=== PATIENT | male | born 1970 | race Caucasian/White ===

== ENCOUNTER 2019-07-06 08:22 | Emergency (ER) | payer SELFPAY ==
[~2019-07-06] VITALS: Ht 177.8 cm; Wt 149.7 kg
[2019-07-06] MEDS ORDERED: IPRATROPIUM BROMIDE 0.02% 2.5 ML NEB NEB STA (08:26)
[2019-07-06] MEDS ORDERED: ASPIRIN 81 MG CHEW TAB PO ONE (08:30)
--- NOTE | 2019-07-06 08:30 | NUR ---
blood drawn at triage
[2019-07-06 08:40] LABS: BASOPHILS % 0.5 % (0.0-1.0); EOSINOPHILS # (AUTO) 0.1 (0.0-0.4); HEMATOCRIT 44.1 % (38.2-49.6); HEMOGLOBIN 14.4 g/dL (14.0-18.0); LYMPHOCYTES # (AUTO) 1.1 (1.0-3.2); LYMPHOCYTES % 14.7 % (18.0-39.1); MEAN CORPUSCULAR HEMOGLOBIN 31.8 pg (28-32); MEAN CORPUSCULAR HGB CONC 32.7 g/dL (31-35); MEAN CORPUSCULAR VOLUME 97.4 fL (81-99); MONOCYTES # (AUTO) 0.6 (0.2-0.8); MONOCYTES % 7.2 % (4.4-11.3); NEUTROPHILS # (AUTO) 5.9 (2.1-6.9); NEUTROPHILS % 76.2 % (38.7-80.0); PLATELET COUNT 221 x10e3/uL (140-360); RED BLOOD COUNT 4.53 x10e6/uL (4.3-5.7); RED CELL DISTRIBUTION WIDTH 14.4 % (11.7-14.4)
[2019-07-06] MEDS ORDERED: CLONIDINE HCL0.1 MG (08:41)
[2019-07-06] MEDS ORDERED: AMLODIPINE BESY10 MG (08:41)
[2019-07-06] MEDS ORDERED: MELOXICAM15 MG (08:41)
[2019-07-06] MEDS ORDERED: PROAIR DIGIHAL90 MCG (08:41)
[2019-07-06] MEDS ORDERED: GLYBURIDE5 MG (08:41)
[2019-07-06] MEDS ORDERED: OLMESARTAN-HCT1 EAC2 (08:41)
[2019-07-06] MEDS ORDERED: METOPROLOL SUCC50 MG (08:41)
[2019-07-06] MEDS ORDERED: FARXIGA10 MG PO (08:43)
[2019-07-06] MEDS ORDERED: BYSTOLIC10 MG PO (08:43)
[2019-07-06 09:08] LABS: ALANINE AMINOTRANSFERASE 35 IU/L (0-55); ALBUMIN 3.8 g/dL (3.5-5.0); ALBUMIN/GLOBULIN RATIO 1.2 (0.8-2.0); ALKALINE PHOSPHATASE 90 IU/L (40-150); BLOOD UREA NITROGEN 16 mg/dL (7-26); BUN/CREATININE RATIO 16 (6-25); CALCIUM 9.5 mg/dL (8.4-10.2); CARBON DIOXIDE 27 mmol/L (22-29); CHLORIDE 101 mmol/L (98-107); CREATINE KINASE 88 IU/L (30-200); CREATININE, SERUM 0.97 mg/dL (0.72-1.25); EST GLOMERULAR FILTRATION RATE > 60 ML/MIN (60-); GLUCOSE 190 mg/dL (74-118); SODIUM 140 mmol/L (136-145)
--- NOTE | 2019-07-06 10:36 | Diagnostic Imaging Report ---
EXAM: CT Chest WITH contrast (PE Protocol) INDICATION: Shortness of breath COMPARISON: None TECHNIQUE: Chest was scanned utilizing a multidetector helical scanner from the lung apex through the level of the diaphragm after administration of IV contrast. Thin section reconstructions were obtained with special concentration on the pulmonary arteries. Coronal and sagittal reformations were obtained. Pulmonary embolism protocol was performed. IV CONTRAST: 100 mL of Omnipaque 350 COMPLICATIONS: None RADIATION DOSE: Total DLP: 674 mGy*cm Estimated effective dose: (DLP x 0.014 x size factor) mSv CTDIvol has been reviewed. It is below the limits set by the Radiation Protocol Committee (RPC). Dose modulation, iterative reconstruction, and/or weight based adjustment of the mA/kV was utilized to reduce the radiation dose to as low as reasonably achievable. FINDINGS: LINES/ TUBES: None. LUNGS AND AIRWAYS: Limited evaluation of the segmental and subsegmental pulmonary artery branches due to beam hardening artifact and respiratory motion. No filling defects are identified within the central and lobar pulmonary arteries. The lungs are clear. PLEURA: The pleural spaces are clear. HEART AND MEDIASTINUM: The heart is at the upper limit of normal in size. No pericardial effusion. No thoracic adenopathy. The main pulmonary artery is normal in caliber. Mild coronary artery calcification. UPPER ABDOMEN: Grossly unremarkable. BONES: The visualized bony thorax is within normal limits. SOFT TISSUES: Unremarkable. IMPRESSION: Limited study with suboptimal evaluation of the segmental and subsegmental pulmonary artery branches. No pulmonary embolus is identified within the main and lobar pulmonary arteries. The lungs are clear. Signed by: Ray Freed MD on 07/06/2019 10:33 AM
== END 2019-07-06 12:00 | disposition home or self-care (01) ==
LOC: ER 08:22
DX: R06.09 Other forms of dyspnea (principal); R60.9 Edema, unspecified
CPT/HCPCS: 36415; 71260; 80053; 82550; 82553; 83880; 84484; 85025; 93005; 94640; 99284

== ENCOUNTER 2019-07-13 06:22 | Emergency (ER) | payer SELFPAY ==
[~2019-07-13] VITALS: Ht 177.8 cm; Wt 149.7 kg
[~2019-07-13 06:22] MED LIST: AMLODIPINE BESY10 MG; BYSTOLIC10 MG PO; CLONIDINE HCL0.1 MG; FARXIGA10 MG PO; GLYBURIDE5 MG; MELOXICAM15 MG; METOPROLOL SUCC50 MG; OLMESARTAN-HCT1 EAC2; PROAIR DIGIHAL90 MCG
--- OUTSIDE RECORDS SUMMARY | 2019-07-13 06:25 | XMS REPORT ---
Author Author [facility] Address Unknown Phone Unavailable Care Team Providers Care [employer] Name Role Phone MK LUI Unavailable Unavailable Problems This patient has no known problems. Allergies, Adverse Reactions, Alerts This patient has no known allergies or adverse reactions. Medications This patient has no known medications. Results Test Description Test Time Test Comments Text Results Atomic Results Result Comments CT CHEST W 2019-07-06 10:28:00 [facility] [address] [place] [address] Patient Name: JESSICA ESCUDERO MR #: [id number] : 1970 Age/Sex: 49/M Req #: [id number] Adm Physician: Ordered by: MK LUI DO Report #: [id number] Location: ER Room/Bed: Procedure: [id number] CT/CT CHEST W Exam Date: 07/06/19 Exam Time: 919 REPORT STATUS: Signed EXAM: CT Chest WITH contrast (PE Protocol) INDICATION: Shortness of breath COMPARISON: None TECHNIQUE: Chest was scanned utilizing a multidetector helical scanner from the lung apex through the level of the diaphragm after administration of IV contrast. Thin section reconstructions were obtained with special concentration on the pulmonary arteries. Coronal and sagittal reformations were obtained. Pulmonary embolism protocol was performed. IV CONTRAST: 100 mL of Omnipaque 350 COMPLICATIONS: None RADIATION DOSE: Total DLP: 674 mGy*cm Estimated effective dose: (DLP x 0.014 x size factor) mSv CTDIvol has been reviewed. It is below the limits set by the Radiation Protocol Committee (RPC). Dose modulation, iterative reconstruction, and/or weight based adjustment of the mA/kV was utilized to reduce the radiation dose to as low as reasonably achievable. FINDINGS: LINES/ TUBES: None. LUNGS AND AIRWAYS: Limited evaluation of the segmental and subsegmental pulmonary artery branches due to beam hardening artifact and respiratory motion. No filling defects are identified within the central and lobar pulmonary arteries. The lungs are clear. PLEURA: The pleural spaces are clear. HEART AND MEDIASTINUM: The heart is at the upper limit of normal in size. No pericardial effusion. No thoracic adenopathy. The main pulmonary artery is normal in caliber. Mild veronique nary artery calcification. UPPER ABDOMEN: Grossly unremarkable. BONES: The visualized bony thorax is within normal limits. SOFT TISSUES: Unremarkable. IMPRESSION: Limited study with suboptimal evaluation of the segmental and subsegmental pulmonary artery branches. No pulmonary embolus is identified within the main and lobar pulmonary arteries. The lungs are clear. Signed by: Anette Arguello MD on 07/06/2019 10:33 AM Dictated By: ANETTE ARGUELLO MD [id number] Transcribed By: ARTHUR on 07/06/19 1033 COPY TO: MK LUI DO
[2019-07-13 06:55] LABS: BASOPHILS % 0.5 % (0.0-1.0); EOSINOPHILS # (AUTO) 0.1 (0.0-0.4); EOSINOPHILS % 1.7 % (0.0-6.0); HEMATOCRIT 49.5 % (38.2-49.6); LYMPHOCYTES # (AUTO) 1.3 (1.0-3.2); LYMPHOCYTES % 17.2 % (18.0-39.1); MEAN CORPUSCULAR HEMOGLOBIN 31.6 pg (28-32); MEAN CORPUSCULAR HGB CONC 32.3 g/dL (31-35); MEAN CORPUSCULAR VOLUME 97.8 fL (81-99); MONOCYTES # (AUTO) 0.7 (0.2-0.8); MONOCYTES % 9.3 % (4.4-11.3); NEUTROPHILS # (AUTO) 5.4 (2.1-6.9); NEUTROPHILS % 70.1 % (38.7-80.0); PLATELET COUNT 217 x10e3/uL (140-360); RED BLOOD COUNT 5.06 x10e6/uL (4.3-5.7); RED CELL DISTRIBUTION WIDTH 14.4 % (11.7-14.4)
--- NOTE | 2019-07-13 06:57 | NUR ---
Report to Fernando
--- NOTE | 2019-07-13 06:58 | NUR ---
received report from off going nurse. patient in room in bed, connected to bedside monitor, awake and alert. no s/s of acute distress. resp even and nonlabored. pending results for dispo. bed down call light in reach, will continue to monitor.
[2019-07-13 07:13] LABS: ALANINE AMINOTRANSFERASE 49 IU/L (0-55); ALBUMIN/GLOBULIN RATIO 1.2 (0.8-2.0); ALKALINE PHOSPHATASE 71 IU/L (40-150); BLOOD UREA NITROGEN 19 mg/dL (7-26); BUN/CREATININE RATIO 20 (6-25); CALCIUM 8.9 mg/dL (8.4-10.2); CARBON DIOXIDE 31 mmol/L (22-29); CHLORIDE 100 mmol/L (98-107); CREATININE, SERUM 0.94 mg/dL (0.72-1.25); EST GLOMERULAR FILTRATION RATE > 60 ML/MIN (60-); GLUCOSE 144 mg/dL (74-118); SODIUM 138 mmol/L (136-145)
--- NOTE | 2019-07-13 07:22 | Diagnostic Imaging Report ---
Examination: Single AP view of the chest. COMPARISON: CT chest PE protocol 07/06/2019 INDICATION: Syncope DISCUSSION: The lungs are well inflated. No focal consolidation, pleural effusion, or pneumothorax. Cardiomediastinal contour and pulmonary vasculature are within normal limits when accounting for AP technique. No acute osseous abnormalities. IMPRESSION: 1. No acute cardiopulmonary abnormalities. Signed by: Dr. Gunner King M.D. on 07/13/2019 7:20 AM
[2019-07-13 07:45] LABS: CLARITY,URINE SL CLOUDY (CLEAR); COLOR,URINE YELLOW (YELLOW)
[2019-07-13 07:46] LABS: AMPHETAMINES SCREEN,URINE NEGATIVE (NEGATIVE); BENZODIAZEPINES SCREEN,URINE NEGATIVE (NEGATIVE); KETONES,URINE NEGATIVE (NEGATIVE); LEUKOCYTE ESTERASE ,URINE NEGATIVE (NEGATIVE); NITRITE,URINE NEGATIVE (NEGATIVE); PHENCYCLIDINE SCREEN,URINE NEGATIVE (NEGATIVE); PROTEIN,URINE DIPSTICK NEGATIVE (NEGATIVE)
[2019-07-13 07:47] LABS: BACTERIA,URINE RARE /HPF; BILIRUBIN,URINE NEGATIVE (NEGATIVE); EPITHELIAL CELLS,URINE FEW /LPF; RBC,URINE 0-5 /HPF (0-5); URINE UROBILINOGEN 0.2 mg/dL (0.2 - 1); WBC,URINE (MAN) 0-5 /HPF (0-5)
--- NOTE | 2019-07-13 07:48 | Diagnostic Imaging Report ---
Examination: CT BRAIN WO CONTRAST History:Tingling in the fingers Comparison studies:None Technique: Axial images were obtained from the skull base to the vertex. Coronal and sagittal images reconstructed from the axial data. Dose modulation, iterative reconstruction, and/or weight based adjustment of the mA/kV was utilized to reduce the radiation dose to as low as reasonably achievable. Intravenous contrast: None Findings: Scalp: No abnormalities. Bones: No fractures, blastic or lytic lesions. Brain sulci: Appropriate for age. Ventricles: Normal in size and configuration. No hydrocephalus. Extra-axial space: No abnormalities. Parenchyma: A chronic infarct is identified in the anterior limb of the right internal capsule and right caudate head. There are patchy areas of hypoattenuation in the periventricular and subcortical white matter, nonspecific. No masses, hemorrhage, or acute or chronic cortical based vascular insults. Sellar/suprasellar region: No abnormalities. Craniocervical junction: Patent foramen magnum. No Chiari one malformation. Incidental findings: Opacified right middle ear cavity and mastoid air cells. Impression: No acute intracranial abnormalities. 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 Findings as described could be related to microvascular ischemic change or demyelinating disease. Signed by: Dr. Ramila Garcia M.D. on 07/13/2019 7:45 AM
[2019-07-13 08:58] LABS: ABG HCO3 30 mmol/L (23-28); ABG PCO2 42 mmHg (41-51); ABG PH 7.44 (7.31-7.41); ABG PO2 108 mmHg (80-105)
[2019-07-13 09:04] LABS: MAGNESIUM 2.2 MG/DL (1.3-2.1); PHOSPHORUS 4.2 MG/DL (2.3-4.7)
== END 2019-07-13 12:01 | disposition home or self-care (01) ==
LOC: ER 06:22
DX: R55 Syncope and collapse (principal); R20.2 Paresthesia of skin; I10 Essential (primary) hypertension; E11.9 Type 2 diabetes mellitus without complications; J44.9 Chronic obstructive pulmonary disease, unspecified; J45.909 Unspecified asthma, uncomplicated; E66.9 Obesity, unspecified; Z89.511 Acquired absence of right leg below knee
CPT/HCPCS: 36415; 36600; 70450; 71045; 80053; 80307; 81001; 82805; 83735; 84100; 85025; 85379; 93005; 99284

== ENCOUNTER 2020-12-25 06:42 | Emergency (ER) | payer BC ==
[~2020-12-25] VITALS: Ht 177.8 cm; Wt 149.7 kg
[2020-12-25 07:09] LABS: BASOPHILS # (AUTO) 0.1 (0.0-0.1); BASOPHILS % 0.7 % (0.0-1.0); EOSINOPHILS # (AUTO) 0.1 (0.0-0.4); EOSINOPHILS % 1.6 % (0.0-6.0); HEMATOCRIT 42.6 % (38.2-49.6); HEMOGLOBIN 13.6 g/dL (14.0-18.0); LYMPHOCYTES % 13.3 % (18.0-39.1); MEAN CORPUSCULAR HEMOGLOBIN 29.7 pg (28-32); MEAN CORPUSCULAR HGB CONC 31.9 g/dL (31-35); MONOCYTES # (AUTO) 0.6 (0.2-0.8); MONOCYTES % 7.5 % (4.4-11.3); NEUTROPHILS # (AUTO) 5.7 (2.1-6.9); NEUTROPHILS % 76.6 % (38.7-80.0); PLATELET COUNT 223 x10e3/uL (140-360); RED BLOOD COUNT 4.58 x10e6/uL (4.3-5.7); RED CELL DISTRIBUTION WIDTH 13.8 % (11.7-14.4)
[2020-12-25 07:42] LABS: ALBUMIN 3.5 g/dL (3.5-5.0); ANION GAP 14.7 mmol/L (8-16); CALCIUM 8.9 mg/dL (8.4-10.2); CREATININE, SERUM 0.91 mg/dL (0.72-1.25); POTASSIUM 3.7 mmol/L (3.5-5.1)
[2020-12-25 07:49] LABS: CREATINE KINASE MB 1.2 ng/mL (0-5.0)
[2020-12-25 11:01] LABS: CREATINE KINASE 49 IU/L (30-200)
== END 2020-12-25 11:57 | disposition home or self-care (01) ==
LOC: ER 07:33
DX: R07.89 Other chest pain (principal); I10 Essential (primary) hypertension; J44.9 Chronic obstructive pulmonary disease, unspecified; Z87.891 Personal history of nicotine dependence; E11.9 Type 2 diabetes mellitus without complications; Z79.84 Long term (current) use of oral hypoglycemic drugs; Z79.899 Other long term (current) drug therapy
CPT/HCPCS: 36415; 71045; 80053; 82550; 82553; 83690; 83880; 84484; 85025; 93005; 99284

== ENCOUNTER 2021-01-08 10:10 | Inpatient (IN) | payer BC ==
[~2021-01-08] VITALS: Ht 170.2 cm; Wt 133.0 kg
[2021-01-08] MEDS ORDERED: DEXAMETHASONE SOD PHOS 10 MG/1 ML VIAL IV ONE (10:30)
[2021-01-08 10:36] LABS: BASOPHILS % 0.2 % (0.0-1.0); HEMATOCRIT 36.5 % (38.2-49.6); HEMOGLOBIN 11.7 g/dL (14.0-18.0); LYMPHOCYTES # (AUTO) 0.4 (1.0-3.2); LYMPHOCYTES % 7.5 % (18.0-39.1); MEAN CORPUSCULAR HEMOGLOBIN 29.5 pg (28-32); MEAN CORPUSCULAR HGB CONC 32.1 g/dL (31-35); MEAN CORPUSCULAR VOLUME 92.2 fL (81-99); MONOCYTES # (AUTO) 0.3 (0.2-0.8); MONOCYTES % 5.4 % (4.4-11.3); NEUTROPHILS # (AUTO) 5.1 (2.1-6.9); NEUTROPHILS % 86.4 % (38.7-80.0); PLATELET COUNT 186 x10e3/uL (140-360); RED BLOOD COUNT 3.96 x10e6/uL (4.3-5.7); RED CELL DISTRIBUTION WIDTH 14.5 % (11.7-14.4)
[2021-01-08 11:13] LABS: ALBUMIN 2.8 g/dL (3.5-5.0); ALBUMIN/GLOBULIN RATIO 0.6 (0.8-2.0); ANION GAP 19.1 mmol/L (8-16); CALCIUM 8.4 mg/dL (8.4-10.2); CREATININE, SERUM 1.15 mg/dL (0.72-1.25); POTASSIUM 4.1 mmol/L (3.5-5.1)
[2021-01-08] MEDS ORDERED: SODIUM CHLORIDE 0.9% 1000ML 1,000 ML IV ONE (15:00)
[2021-01-08] MEDS ORDERED: GUAIFENESIN/CODEINE 10 ML CUP PO PRN (15:00)
[2021-01-08] MEDS ORDERED: DEXTROSE 50% SYRINGE 50 ML IV PRN ×2 (15:00→17:15)
[2021-01-08] MEDS ORDERED: REMDESIVIR 200MG 200 MG in SODIUM CHLORIDE 0.9% 100 ML 100 ML IV ONE (15:30)
[2021-01-08] MEDS: CEFTRIAXONE 2 GM in SODIUM CHLORIDE 0.9% 100 ML IV SCH (15:47)
[2021-01-08] MEDS ORDERED: INSULIN REGULAR, HUMAN 100 UNIT/1 ML SQ SCH (16:30)
[2021-01-08] MEDS ORDERED: ENOXAPARIN SOD INJ 40 MG/0.4 ML SYR SC SCH (17:00)
[2021-01-08] MEDS: ASCORBIC ACID 500 MG TAB PO SCH (17:00)
[2021-01-08] MEDS: GLYBURIDE 5 MG TAB PO SCH (17:30)
[2021-01-08] MEDS ORDERED: ZOLPIDEM TARTRATE 5 MG TAB PO PRN (21:00)
[2021-01-08] MEDS: INSULIN GLARGINE 100 UNITS/ML VIAL SQ SCH (21:00)
[2021-01-08] MEDS: CLONIDINE HCL 0.1 MG TAB PO SCH (21:00)
[2021-01-08] MEDS: INSULIN REGULAR, HUMAN 100 UNIT/1 ML SQ SCH (22:19)
[2021-01-09] VITALS (13 sets, daily range): BP systolic 88–124; BP diastolic 38–95
[2021-01-09] MEDS ORDERED: DEXMEDETOMIDINE 200MCG/NS 50ML 50 ML IV PRN
[2021-01-09] MEDS ORDERED: DEXMEDETOMIDINE 200MCG/NS 50ML 100 ML IV ONE (00:04)
[2021-01-09] MEDS ORDERED: ENOXAPARIN INJ 80 MG/0.8 ML SYR SC SCH (05:00)
[2021-01-09] MEDS: INSULIN REGULAR, HUMAN 100 UNIT/1 ML SQ SCH ×4 (07:30→21:00)
[2021-01-09 08:07] LABS: BASOPHILS % 0.1 % (0.0-1.0); HEMATOCRIT 41.8 % (38.2-49.6); HEMOGLOBIN 13.3 g/dL (14.0-18.0); LYMPHOCYTES # (AUTO) 0.4 (1.0-3.2); LYMPHOCYTES % 6.1 % (18.0-39.1); MEAN CORPUSCULAR HEMOGLOBIN 28.9 pg (28-32); MEAN CORPUSCULAR HGB CONC 31.8 g/dL (31-35); MEAN CORPUSCULAR VOLUME 90.9 fL (81-99); MONOCYTES # (AUTO) 0.4 (0.2-0.8); MONOCYTES % 5.1 % (4.4-11.3); NEUTROPHILS # (AUTO) 6.1 (2.1-6.9); NEUTROPHILS % 88.3 % (38.7-80.0); PLATELET COUNT 264 x10e3/uL (140-360); RED CELL DISTRIBUTION WIDTH 14.5 % (11.7-14.4)
[2021-01-09 08:41] LABS: ALBUMIN 3.3 g/dL (3.5-5.0); ALBUMIN/GLOBULIN RATIO 0.9 (0.8-2.0); ANION GAP 17.4 mmol/L (8-16); CALCIUM 8.7 mg/dL (8.4-10.2); CREATININE, SERUM 0.88 mg/dL (0.72-1.25); POTASSIUM 4.4 mmol/L (3.5-5.1)
[2021-01-09] MEDS: GLYBURIDE 5 MG TAB PO SCH ×3 (08:52→17:35)
[2021-01-09] MEDS: CLONIDINE HCL 0.1 MG TAB PO SCH ×2 (08:52→21:16)
[2021-01-09] MEDS: CEFTRIAXONE 2 GM in SODIUM CHLORIDE 0.9% 100 ML IV SCH (08:52)
[2021-01-09] MEDS: AMLODIPINE BESYLATE 5 MG TAB PO SCH (08:54)
[2021-01-09] MEDS: ASCORBIC ACID 500 MG TAB PO SCH ×2 (08:54→16:31)
[2021-01-09] MEDS: (Dapagliflozin Propanediol (Farxiga) 10 MG) PO SCH (08:54)
[2021-01-09] MEDS ORDERED: NEBIVOLOL 10 MG TAB PO SCH (09:00)
[2021-01-09] MEDS: METOPROLOL SUCCINATE 50 MG TAB XL PO SCH (09:00)
[2021-01-09] MEDS: ZINC SULFATE 220 MG CAP PO SCH (09:10)
[2021-01-09] MEDS: DEXAMETHASONE SOD PHOS 10 MG/1 ML VIAL IV SCH (12:20)
[2021-01-09] MEDS: REMDESIVIR 100MG 100 MG in SODIUM CHLORIDE 0.9% 100 ML 100 ML IV SCH (14:35)
[2021-01-09] MEDS: ENOXAPARIN SOD INJ 40 MG/0.4 ML SYR SC SCH (17:00)
[2021-01-09] MEDS ORDERED: GUAIFENESIN/CODEINE 5 ML LIQD PO PRN (20:00)
[2021-01-09] MEDS: INSULIN GLARGINE 100 UNITS/ML VIAL SQ SCH (21:18)
[2021-01-10] VITALS (23 sets, daily range): BP systolic 106–138; BP diastolic 47–101
[2021-01-10] MEDS: ENOXAPARIN SOD INJ 40 MG/0.4 ML SYR SC SCH ×2 (05:00→16:30)
[2021-01-10 05:08] LABS: BASOPHILS % 0.1 % (0.0-1.0); HEMATOCRIT 39.7 % (38.2-49.6); HEMOGLOBIN 12.7 g/dL (14.0-18.0); LYMPHOCYTES # (AUTO) 0.4 (1.0-3.2); LYMPHOCYTES % 4.7 % (18.0-39.1); MEAN CORPUSCULAR VOLUME 90.6 fL (81-99); MONOCYTES # (AUTO) 0.3 (0.2-0.8); MONOCYTES % 4.1 % (4.4-11.3); NEUTROPHILS # (AUTO) 6.8 (2.1-6.9); NEUTROPHILS % 90.3 % (38.7-80.0); PLATELET COUNT 294 x10e3/uL (140-360); RED BLOOD COUNT 4.38 x10e6/uL (4.3-5.7); RED CELL DISTRIBUTION WIDTH 14.7 % (11.7-14.4)
[2021-01-10 05:37] LABS: ALBUMIN/GLOBULIN RATIO 0.9 (0.8-2.0); ANION GAP 14.9 mmol/L (8-16); CALCIUM 8.6 mg/dL (8.4-10.2); CREATININE, SERUM 0.86 mg/dL (0.72-1.25); POTASSIUM 3.9 mmol/L (3.5-5.1)
[2021-01-10] MEDS ORDERED: SODIUM CHLORIDE 0.9% 200 ML ONE (08:54)
[2021-01-10] MEDS ORDERED: SODIUM CHLORIDE 0.9% 100 ML ONE (08:56)
[2021-01-10] MEDS: (Dapagliflozin Propanediol (Farxiga) 10 MG) PO SCH (09:00)
[2021-01-10] MEDS: DEXAMETHASONE SOD PHOS 10 MG/1 ML VIAL IV SCH (09:09)
[2021-01-10] MEDS: GLYBURIDE 5 MG TAB PO SCH ×2 (09:09→17:00)
[2021-01-10] MEDS: ASCORBIC ACID 500 MG TAB PO SCH ×2 (09:10→16:30)
[2021-01-10] MEDS: METOPROLOL SUCCINATE 50 MG TAB XL PO SCH (09:10)
[2021-01-10] MEDS: ZINC SULFATE 220 MG CAP PO SCH (09:10)
[2021-01-10] MEDS: AMLODIPINE BESYLATE 5 MG TAB PO SCH (09:10)
[2021-01-10] MEDS: CLONIDINE HCL 0.1 MG TAB PO SCH ×2 (09:10→20:53)
[2021-01-10] MEDS: INSULIN REGULAR, HUMAN 100 UNIT/1 ML SQ SCH ×4 (09:12→20:51)
[2021-01-10] MEDS: CEFTRIAXONE 2 GM in SODIUM CHLORIDE 0.9% 100 ML IV SCH (09:12)
[2021-01-10] MEDS: REMDESIVIR 100MG 100 MG in SODIUM CHLORIDE 0.9% 100 ML 100 ML IV SCH (13:52)
[2021-01-10] MEDS: INSULIN GLARGINE 100 UNITS/ML VIAL SQ SCH (20:53)
[2021-01-11] VITALS (21 sets, daily range): BP systolic 111–145; BP diastolic 58–117
[2021-01-11] MEDS: ENOXAPARIN SOD INJ 40 MG/0.4 ML SYR SC SCH ×2 (05:49→16:44)
[2021-01-11 05:51] LABS: BASOPHILS % 0.1 % (0.0-1.0); HEMATOCRIT 43.3 % (38.2-49.6); HEMOGLOBIN 13.9 g/dL (14.0-18.0); LYMPHOCYTES # (AUTO) 0.4 (1.0-3.2); LYMPHOCYTES % 3.1 % (18.0-39.1); MEAN CORPUSCULAR HEMOGLOBIN 29.1 pg (28-32); MEAN CORPUSCULAR HGB CONC 32.1 g/dL (31-35); MEAN CORPUSCULAR VOLUME 90.6 fL (81-99); MONOCYTES # (AUTO) 0.4 (0.2-0.8); MONOCYTES % 3.4 % (4.4-11.3); NEUTROPHILS # (AUTO) 11.5 (2.1-6.9); NEUTROPHILS % 92.4 % (38.7-80.0); PLATELET COUNT 256 x10e3/uL (140-360); RED BLOOD COUNT 4.78 x10e6/uL (4.3-5.7)
[2021-01-11 06:33] LABS: ALBUMIN 3.2 g/dL (3.5-5.0); ALBUMIN/GLOBULIN RATIO 0.8 (0.8-2.0); ANION GAP 17.9 mmol/L (8-16); CALCIUM 8.4 mg/dL (8.4-10.2); CREATININE, SERUM 0.89 mg/dL (0.72-1.25); POTASSIUM 3.9 mmol/L (3.5-5.1)
[2021-01-11] MEDS: GLYBURIDE 5 MG TAB PO SCH ×2 (08:29→16:44)
[2021-01-11] MEDS: DEXAMETHASONE SOD PHOS 10 MG/1 ML VIAL IV SCH (08:29)
[2021-01-11] MEDS: CEFTRIAXONE 2 GM in SODIUM CHLORIDE 0.9% 100 ML IV SCH (08:30)
[2021-01-11] MEDS: CLONIDINE HCL 0.1 MG TAB PO SCH ×2 (08:30→21:08)
[2021-01-11] MEDS: (Dapagliflozin Propanediol (Farxiga) 10 MG) PO SCH (08:30)
[2021-01-11] MEDS: AMLODIPINE BESYLATE 5 MG TAB PO SCH (08:30)
[2021-01-11] MEDS: METOPROLOL SUCCINATE 50 MG TAB XL PO SCH (08:31)
[2021-01-11] MEDS: ASCORBIC ACID 500 MG TAB PO SCH ×2 (08:31→16:44)
[2021-01-11] MEDS: ZINC SULFATE 220 MG CAP PO SCH (08:31)
[2021-01-11] MEDS: INSULIN REGULAR, HUMAN 100 UNIT/1 ML SQ SCH ×4 (08:35→21:14)
[2021-01-11] MEDS: REMDESIVIR 100MG 100 MG in SODIUM CHLORIDE 0.9% 100 ML 100 ML IV SCH (14:11)
[2021-01-11] MEDS: INSULIN GLARGINE 100 UNITS/ML VIAL SQ SCH (21:14)
[2021-01-12] VITALS (24 sets, daily range): BP systolic 122–145; BP diastolic 59–92
[2021-01-12] MEDS: ENOXAPARIN SOD INJ 40 MG/0.4 ML SYR SC SCH ×2 (05:36→17:05)
[2021-01-12] MEDS: INSULIN REGULAR, HUMAN 100 UNIT/1 ML SQ SCH ×4 (08:38→21:31)
[2021-01-12] MEDS: DEXAMETHASONE SOD PHOS 10 MG/1 ML VIAL IV SCH (08:39)
[2021-01-12] MEDS: GLYBURIDE 5 MG TAB PO SCH ×2 (08:39→17:04)
[2021-01-12] MEDS: (Dapagliflozin Propanediol (Farxiga) 10 MG) PO SCH (08:39)
[2021-01-12] MEDS: AMLODIPINE BESYLATE 5 MG TAB PO SCH (08:39)
[2021-01-12] MEDS: CEFTRIAXONE 2 GM in SODIUM CHLORIDE 0.9% 100 ML IV SCH (08:39)
[2021-01-12] MEDS: ZINC SULFATE 220 MG CAP PO SCH (08:39)
[2021-01-12] MEDS: CLONIDINE HCL 0.1 MG TAB PO SCH ×2 (08:39→21:16)
[2021-01-12] MEDS: ASCORBIC ACID 500 MG TAB PO SCH ×2 (08:39→17:04)
[2021-01-12] MEDS ORDERED: SODIUM CHLORIDE 0.9% 100 ML ONE (08:40)
[2021-01-12] MEDS: METOPROLOL SUCCINATE 50 MG TAB XL PO SCH (08:40)
[2021-01-12] MEDS: REMDESIVIR 100MG 100 MG in SODIUM CHLORIDE 0.9% 100 ML 100 ML IV SCH (14:30)
[2021-01-12] MEDS: INSULIN GLARGINE 100 UNITS/ML VIAL SQ SCH (21:32)
[2021-01-13] VITALS (25 sets, daily range): BP systolic 106–171; BP diastolic 45–134
[2021-01-13] MEDS: ENOXAPARIN SOD INJ 40 MG/0.4 ML SYR SC SCH ×2 (05:10→17:03)
[2021-01-13 05:57] LABS: BASOPHILS % 0.1 % (0.0-1.0); EOSINOPHILS % 0.1 % (0.0-6.0); HEMOGLOBIN 13.2 g/dL (14.0-18.0); LYMPHOCYTES # (AUTO) 0.4 (1.0-3.2); LYMPHOCYTES % 3.6 % (18.0-39.1); MEAN CORPUSCULAR HGB CONC 31.4 g/dL (31-35); MEAN CORPUSCULAR VOLUME 92.3 fL (81-99); MONOCYTES # (AUTO) 0.3 (0.2-0.8); MONOCYTES % 2.5 % (4.4-11.3); NEUTROPHILS # (AUTO) 10.2 (2.1-6.9); NEUTROPHILS % 92.5 % (38.7-80.0); PLATELET COUNT 95 x10e3/uL (140-360); RED BLOOD COUNT 4.55 x10e6/uL (4.3-5.7); RED CELL DISTRIBUTION WIDTH 15.5 % (11.7-14.4)
[2021-01-13 06:22] LABS: ALBUMIN/GLOBULIN RATIO 0.9 (0.8-2.0); ANION GAP 15.3 mmol/L (8-16); CALCIUM 8.3 mg/dL (8.4-10.2); CREATININE, SERUM 0.73 mg/dL (0.72-1.25); POTASSIUM 4.3 mmol/L (3.5-5.1)
[2021-01-13] MEDS: INSULIN REGULAR, HUMAN 100 UNIT/1 ML SQ SCH ×4 (07:30→21:01)
[2021-01-13] MEDS: DEXAMETHASONE SOD PHOS 10 MG/1 ML VIAL IV SCH (08:17)
[2021-01-13] MEDS: GLYBURIDE 5 MG TAB PO SCH ×2 (08:17→17:03)
[2021-01-13] MEDS: CLONIDINE HCL 0.1 MG TAB PO SCH ×2 (08:17→20:59)
[2021-01-13] MEDS: ASCORBIC ACID 500 MG TAB PO SCH ×2 (08:18→17:03)
[2021-01-13] MEDS: (Dapagliflozin Propanediol (Farxiga) 10 MG) PO SCH (08:18)
[2021-01-13] MEDS: AMLODIPINE BESYLATE 5 MG TAB PO SCH (08:18)
[2021-01-13] MEDS: ZINC SULFATE 220 MG CAP PO SCH (08:18)
[2021-01-13] MEDS: METOPROLOL SUCCINATE 50 MG TAB XL PO SCH (08:19)
[2021-01-13] MEDS ORDERED: SODIUM CHLORIDE 0.9% 100 ML ONE (08:25)
[2021-01-13] MEDS: CEFTRIAXONE 2 GM in SODIUM CHLORIDE 0.9% 100 ML IV SCH (10:00)
[2021-01-13] MEDS ORDERED: ACETAMINOPHEN 1000 MG/100 ML IV ONE (20:15)
[2021-01-13] MEDS ORDERED: ACETAMINOPHEN 1000 MG/100 ML 100 ML IV ONE (20:32)
[2021-01-13] MEDS: INSULIN GLARGINE 100 UNITS/ML VIAL SQ SCH (21:02)
[2021-01-14] VITALS (25 sets, daily range): BP systolic 108–159; BP diastolic 59–103
[2021-01-14] MEDS: ENOXAPARIN SOD INJ 40 MG/0.4 ML SYR SC SCH (05:27)
[2021-01-14] MEDS: INSULIN REGULAR, HUMAN 100 UNIT/1 ML SQ SCH ×4 (08:00→21:27)
[2021-01-14 08:04] LABS: ALBUMIN 2.9 g/dL (3.5-5.0); ALBUMIN/GLOBULIN RATIO 0.8 (0.8-2.0); ANION GAP 18.6 mmol/L (8-16); CALCIUM 8.4 mg/dL (8.4-10.2); POTASSIUM 4.6 mmol/L (3.5-5.1)
[2021-01-14] MEDS: GLYBURIDE 5 MG TAB PO SCH ×2 (08:07→16:32)
[2021-01-14] MEDS: CLONIDINE HCL 0.1 MG TAB PO SCH (08:16)
[2021-01-14] MEDS: AMLODIPINE BESYLATE 5 MG TAB PO SCH (08:16)
[2021-01-14] MEDS: (Dapagliflozin Propanediol (Farxiga) 10 MG) PO SCH (08:16)
[2021-01-14] MEDS: DEXAMETHASONE SOD PHOS 10 MG/1 ML VIAL IV SCH (08:16)
[2021-01-14] MEDS: METOPROLOL SUCCINATE 50 MG TAB XL PO SCH (08:17)
[2021-01-14] MEDS: ZINC SULFATE 220 MG CAP PO SCH (08:17)
[2021-01-14] MEDS: ASCORBIC ACID 500 MG TAB PO SCH ×2 (08:17→16:32)
[2021-01-14 08:41] LABS: CREATININE, SERUM 0.71 mg/dL (0.72-1.25)
[2021-01-14 09:47] LABS: BASOPHILS % 0.1 % (0.0-1.0); EOSINOPHILS # (AUTO) 0.1 (0.0-0.4); EOSINOPHILS % 0.4 % (0.0-6.0); HEMATOCRIT 43.2 % (38.2-49.6); HEMOGLOBIN 13.4 g/dL (14.0-18.0); LYMPHOCYTES # (AUTO) 0.5 (1.0-3.2); LYMPHOCYTES % 3.5 % (18.0-39.1); MEAN CORPUSCULAR HEMOGLOBIN 28.8 pg (28-32); MEAN CORPUSCULAR VOLUME 92.7 fL (81-99); MONOCYTES # (AUTO) 0.3 (0.2-0.8); MONOCYTES % 1.9 % (4.4-11.3); NEUTROPHILS # (AUTO) 12.3 (2.1-6.9); NEUTROPHILS % 92.2 % (38.7-80.0); RED BLOOD COUNT 4.66 x10e6/uL (4.3-5.7); RED CELL DISTRIBUTION WIDTH 15.6 % (11.7-14.4)
[2021-01-14 11:55] LABS: PLATELET ESTIMATE MODERATELY DECREASED; PLATELET MORPHOLOGY COMMENT NORMAL; RBC MORPHOLOGY COMMENT NORMAL
[2021-01-14 11:57] LABS: PLATELET COUNT 88 x10e3/uL (140-360)
[2021-01-14] MEDS: MEROPENEM 500 MG in SODIUM CHLORIDE 0.9% 50ML 50 ML IV SCH ×2 (13:04→21:24)
[2021-01-14] MEDS: Vancomycin IV 1 GM in SODIUM CHLORIDE 0.9% 250ML 250 ML IV SCH (13:04)
[2021-01-14] MEDS ORDERED: GUAIFENESIN/CODEINE 5 ML LIQD PO PRN (16:00)
[2021-01-14] MEDS: INSULIN GLARGINE 100 UNITS/ML VIAL SQ SCH (21:27)
[2021-01-14] MEDS ORDERED: SODIUM CHLORIDE 0.9% 250ML 250 ML ONE (21:43)
[2021-01-15] VITALS (19 sets, daily range): BP systolic 45–173; BP diastolic 22–110
[2021-01-15] MEDS: Vancomycin IV 1 GM in SODIUM CHLORIDE 0.9% 250ML 250 ML IV SCH ×2 (00:47→14:45)
[2021-01-15] MEDS: MEROPENEM 500 MG in SODIUM CHLORIDE 0.9% 50ML 50 ML IV SCH ×2 (04:23→13:36)
[2021-01-15 05:55] LABS: BASOPHILS % 0.2 % (0.0-1.0); EOSINOPHILS % 0.3 % (0.0-6.0); HEMATOCRIT 40.9 % (38.2-49.6); HEMOGLOBIN 12.8 g/dL (14.0-18.0); LYMPHOCYTES # (AUTO) 0.4 (1.0-3.2); LYMPHOCYTES % 3.1 % (18.0-39.1); MEAN CORPUSCULAR HEMOGLOBIN 28.9 pg (28-32); MEAN CORPUSCULAR HGB CONC 31.3 g/dL (31-35); MEAN CORPUSCULAR VOLUME 92.3 fL (81-99); MONOCYTES # (AUTO) 0.3 (0.2-0.8); MONOCYTES % 2.5 % (4.4-11.3); NEUTROPHILS # (AUTO) 11.5 (2.1-6.9); NEUTROPHILS % 91.9 % (38.7-80.0); PLATELET COUNT 74 x10e3/uL (140-360); RED BLOOD COUNT 4.43 x10e6/uL (4.3-5.7); RED CELL DISTRIBUTION WIDTH 15.6 % (11.7-14.4)
[2021-01-15 06:22] LABS: ALBUMIN 2.5 g/dL (3.5-5.0); ALBUMIN/GLOBULIN RATIO 0.8 (0.8-2.0); ANION GAP 12.8 mmol/L (8-16); CREATININE, SERUM 0.71 mg/dL (0.72-1.25); POTASSIUM 4.8 mmol/L (3.5-5.1)
[2021-01-15] MEDS: GLYBURIDE 5 MG TAB PO SCH ×2 (08:03→17:00)
[2021-01-15] MEDS: (Dapagliflozin Propanediol (Farxiga) 10 MG) PO SCH (08:03)
[2021-01-15] MEDS: DEXAMETHASONE SOD PHOS 10 MG/1 ML VIAL IV SCH (08:03)
[2021-01-15] MEDS: ASCORBIC ACID 500 MG TAB PO SCH ×2 (08:04→17:00)
[2021-01-15] MEDS: METOPROLOL SUCCINATE 50 MG TAB XL PO SCH (08:04)
[2021-01-15] MEDS: ZINC SULFATE 220 MG CAP PO SCH (08:04)
[2021-01-15] MEDS: INSULIN REGULAR, HUMAN 100 UNIT/1 ML SQ SCH ×3 (08:07→16:30)
[2021-01-15] MEDS ORDERED: ACETAMINOPHEN 325 MG TAB PO PRN (08:30)
[2021-01-15] MEDS ORDERED: FONDAPARINUX SODIUM 5 MG/0.4 ML SYRINGE SQ SCH (09:00)
[2021-01-15] MEDS ORDERED: ASPIRIN 325 MG TAB EC PO STA (09:32)
[2021-01-15] MEDS ORDERED: MORPHINE SULFATE INJ 2 MG/ML SYR ONE (09:48)
[2021-01-15] MEDS ORDERED: SODIUM CHLORIDE 0.9% 1000ML 1,000 ML ONE (09:56)
[2021-01-15] MEDS ORDERED: MIDAZOLAM HCL 2 MG/2 ML VIAL ONE ×2 (09:56→12:53)
[2021-01-15] MEDS ORDERED: FENTANYL CITRATE/PF 100MCG/2 ML INJ ONE (09:56)
[2021-01-15] MEDS ORDERED: HEPARIN SOD/SOD CHLORIDE 2,000 ML ONE (09:56)
[2021-01-15] MEDS ORDERED: LIDOCAINE HCL 2% LOCAL 20 ML VIAL ONE (09:56)
[2021-01-15] MEDS ORDERED: IOPAMIDOL 370 MG/ML 200 ML INFUS..BTL INJ ONE ×2 (09:56→11:48)
[2021-01-15] MEDS ORDERED: NOREPINEPHRINE 8 MG/D5W 250 ML 250 ML IV SCH (10:00)
[2021-01-15] MEDS ORDERED: MORPHINE SULFATE INJ 4 MG/ML INJ 1ML IV ONE (10:00)
[2021-01-15] MEDS ORDERED: ROCURONIUM BROMIDE 1,250 MG in SODIUM CHLORIDE 0.9% 250ML 125 ML IV SCH (10:00)
[2021-01-15] MEDS ORDERED: ROCURONIUM 1250MG/NS 250 250 ML IV SCH (10:00)
[2021-01-15] MEDS ORDERED: SODIUM CHLORIDE 0.9% 50ML 50 ML ONE ×2 (10:00→11:07)
[2021-01-15] MEDS ORDERED: BIVALRIUDIN 250 MG/VIAL VIAL IV ONE ×2 (10:00→11:07)
[2021-01-15] MEDS ORDERED: MORPHINE SULFATE INJ 2 MG/ML SYR IV ONE (10:00)
[2021-01-15] MEDS: FENTANYL 2000MCG/NS 250 250 ML IV SCH ×2 (10:38→16:58)
[2021-01-15] MEDS: MIDAZOLAM HCL 5MG/ML 10ML VIAL 100 ML IV PRN ×2 (10:39→14:43)
[2021-01-15] MEDS ORDERED: AMIODARONE HCL 100 ML IV ONE (10:56)
[2021-01-15] MEDS ORDERED: ALTEPLASE RECOMBINANT 2 MG/2 ML VIAL ONE (11:18)
[2021-01-15] MEDS ORDERED: EPTIFIBATIDE 20 ML ONE (11:31)
[2021-01-15] MEDS ORDERED: EPTIFIBATIDE 75mg 100ML 100 ML ONE (11:31)
[2021-01-15] MEDS ORDERED: VERAPAMIL HCL 2.5 MG/ML 2 ML VIAL ONE (11:38)
[2021-01-15] MEDS ORDERED: EPTIFIBATIDE 10 ML ONE (11:40)
[2021-01-15] MEDS ORDERED: MAGNESIUM SULF 1GRAM/DEXTROSE PREMIX BAG 100ML IV ONE (12:52)
[2021-01-15] MEDS ORDERED: AMIODARONE 900MG 900 MG/500 ML BAG IV ONE (12:52)
[2021-01-15] MEDS ORDERED: ETOMIDATE 2 MG/ML 10 ML INJ IV ONE (12:53)
[2021-01-15] MEDS ORDERED: WATER STERILE 10 ML VIAL ONE (12:53)
[2021-01-15] MEDS ORDERED: VECURONIUM BROMIDE FOR INJ 20 MG VIAL ONE (12:53)
[2021-01-15] MEDS ORDERED: SUCCINYLCHOLINE CHLORIDE 20 MG/ML 10ML VIAL ONE (12:53)
[2021-01-15] MEDS ORDERED: VASOPRESSIN 60 UNIT in DEXTROSE 5% 50ML 57 ML IV PRN (15:00)
[2021-01-15 15:27] LABS: BASOPHILS # (AUTO) 0.2 (0.0-0.1); BASOPHILS % 0.6 % (0.0-1.0); HEMATOCRIT 40.3 % (38.2-49.6); HEMOGLOBIN 11.5 g/dL (14.0-18.0); LYMPHOCYTES # (AUTO) 1.4 (1.0-3.2); LYMPHOCYTES % 5.1 % (18.0-39.1); MEAN CORPUSCULAR HEMOGLOBIN 29.1 pg (28-32); MEAN CORPUSCULAR HGB CONC 28.5 g/dL (31-35); MONOCYTES # (AUTO) 1.1 (0.2-0.8); MONOCYTES % 4.3 % (4.4-11.3); NEUTROPHILS # (AUTO) 22.5 (2.1-6.9); NEUTROPHILS % 84.8 % (38.7-80.0); RED BLOOD COUNT 3.95 x10e6/uL (4.3-5.7)
[2021-01-15 15:28] LABS: PLATELET COUNT 88 x10e3/uL (140-360)
[2021-01-15] MEDS ORDERED: ALBUMIN 25% 25GM 100ML 0.25 GM/ML BTL IV ONE (15:35)
[2021-01-15] MEDS ORDERED: SODIUM BICARBONATE 8.4% INJ 50 ML SYR IV ONE (16:15)
[2021-01-15] MEDS ORDERED: SODIUM BICARBONATE 8.4% INJ 50 ML SYR IV STA (16:38)
[2021-01-15 16:57] LABS: ABG HCO3 21 mmol/L (22-26); ABG PCO2 68 mmHg (35-45); ABG PO2 56 mmHg (80-105); ABG TCO2 23
[2021-01-15] MEDS ORDERED: EPTIFIBATIDE 75mg 100ML 100 ML IV SCH (17:00)
[2021-01-15] MEDS ORDERED: PHENYLEPHRINE 10MG/ML VIAL 40 MG in DEXTROSE 5% 250ML 250 ML IV SCH (17:30)
[2021-01-15] MEDS ORDERED: PHENYLEPHRINE 10MG/ML VIAL 40 MG in SODIUM CHLORIDE 0.9% 250ML 246 ML IV SCH (19:30)
== END 2021-01-15 22:24 | disposition expired | DRG 981 ==
LOC: ER 10:30 → ERHOLD 12:40 → ICU 01-09 12:32
PROC: XW043E5 Introduction of Remdesivir Anti-infective into Central Vein, Percutaneous Approach, New Technology Group 5 (ICD-10-PCS; 2021-01-08)
PROC: XW043E5 Introduction of Remdesivir Anti-infective into Central Vein, Percutaneous Approach, New Technology Group 5 (ICD-10-PCS; 2021-01-08)
PROC: 8E0ZXY6 Isolation (ICD-10-PCS; 2021-01-08)
PROC: 02HV33Z Insertion of Infusion Device into Superior Vena Cava, Percutaneous Approach (ICD-10-PCS; 2021-01-09)
PROC: 5A09457 Assistance with Respiratory Ventilation, 24-96 Consecutive Hours, Continuous Positive Airway Pressure (ICD-10-PCS; principal; 2021-01-15)
PROC: 027034Z Dilation of Coronary Artery, One Artery with Drug-eluting Intraluminal Device, Percutaneous Approach (ICD-10-PCS; 2021-01-15)
PROC: 02C03ZZ Extirpation of Matter from Coronary Artery, One Artery, Percutaneous Approach (ICD-10-PCS; 2021-01-15)
PROC: 4A023N7 Measurement of Cardiac Sampling and Pressure, Left Heart, Percutaneous Approach (ICD-10-PCS; 2021-01-15)
PROC: B2151ZZ Fluoroscopy of Left Heart using Low Osmolar Contrast (ICD-10-PCS; 2021-01-15)
PROC: B2111ZZ Fluoroscopy of Multiple Coronary Arteries using Low Osmolar Contrast (ICD-10-PCS; 2021-01-15)
DX: U07.1 COVID-19 (principal); J12.82 Pneumonia due to coronavirus disease 2019; J96.01 Acute respiratory failure with hypoxia; I21.09 ST elevation (STEMI) myocardial infarction involving other coronary artery of anterior wall; Z68.42 Body mass index [BMI] 45.0-49.9, adult; E87.1 Hypo-osmolality and hyponatremia; N17.9 Acute kidney failure, unspecified; E66.01 Morbid (severe) obesity due to excess calories; Z79.4 Long term (current) use of insulin; D64.9 Anemia, unspecified; D69.59 Other secondary thrombocytopenia; E11.65 Type 2 diabetes mellitus with hyperglycemia; T45.515A Adverse effect of anticoagulants, initial encounter; Z89.511 Acquired absence of right leg below knee
CPT/HCPCS: 36415; 36569; 36600; 71045; 80053; 82728; 82805; 82948; 83880; 84484; 85025; 85379; 86022; 86140; 87040; 92928; 92973; 93005; 93458; 94002; 94003; 94660; 96372; 99284; C1725; C1757; C1760; C1769; C1874; C1887; J0330; J0456; J0583; J0696; J1100; J1327; J1650; J1815; J1817; J2001; J2185; J2250; J2270; J2370; J2997; J3010; J3370; J3475; J7030; J7050; P9047; Q9967; U0002